=== PATIENT | female | born 1985 | race American Indian/Alaskan Native ===

== ENCOUNTER 2017-03-31 04:10 | Emergency (ER) | payer OTHER ==
[2017-03-31 04:10] VITALS: BMI 25.3
[2017-03-31 04:23] VITALS: BP 150/93
[2017-03-31] MEDS ORDERED: Sodium Chloride 0.9% 1,000 ML IV ONE (04:26)
--- NOTE | 2017-03-31 04:28 | C.PDOC ---
History Of Present Illness 31 year old female, with history of chronic episodes of vomiting, presents to the ED for evaluation of nausea and vomiting which began around 3 days ago. Patient denies fever, chills, or changes in bowel movements at this time. Chief Complaint (Nursing): GI Problem History Per: Patient History/Exam Limitations: no limitations Onset/Duration Of Symptoms: Days (3) Current Symptoms Are (Timing): Still Present Associated Symptoms: Nausea, Vomiting. denies: Fever, Chills, Diarrhea, Constipation Additional History Per: Patient Abnormal Vaginal Bleeding: No Past Medical History Reviewed: Historical Data, Nursing Documentation, Vital Signs Vital Signs: Last Vital Signs Temp 97.6 F 03/31/17 04:19 Pulse 92 H 03/31/17 04:19 Resp 18 03/31/17 04:19 BP 150/93 H 03/31/17 04:19 Pulse Ox 97 03/31/17 05:38 - Medical History PMH: Anxiety, Depression, Diabetes, Gastritis, HTN, Osteoporosis (pt unsure of this hx), Sickle Cell Disease ("JUST FOUND OUT A MONTH AGO"), Chronic Pain Denies: Crohn's Disease, Diverticulitis, Gall Bladder Disease, HIV, Pancreatitis, Chronic Kidney Disease Surgical History: Endoscopy - [facility] Procedures ESOPHAGOGASTRODUODENOSCOPY [EGD] W/CLOSED BIOPSY (11/16/13) INJECT/INFUSE ELECTROLYT (02/25/15) INJECT/INFUSE NEC (02/25/15) Family History: States: Unknown Family Hx, Diabetes - Social History Hx Tobacco Use: Yes Hx Alcohol Use: No Hx Substance Use: Yes - Immunization History Hx Tetanus Toxoid Vaccination: No Hx Influenza Vaccination: Yes Hx Pneumococcal Vaccination: No Review Of Systems Constitutional: Negative for: Fever, Chills Gastrointestinal: Positive for: Nausea, Vomiting. Negative for: Diarrhea, Constipation Physical Exam - Physical Exam Appears: Non-toxic, No Acute Distress Skin: Normal Color, Warm, Dry Head: Atraumatic, Normacephalic Eye(s): bilateral: Normal Inspection Oral Mucosa: Dry Neck: Supple Chest: Symmetrical, No Deformity, No Tenderness Cardiovascular: Rhythm Regular, No Murmur Respiratory: Normal Breath Sounds, No Rales, No Rhonchi, No Wheezing Gastrointestinal/Abdominal: Soft, No Tenderness, No Guarding, No Rebound Extremity: Normal ROM, Capillary Refill (less than 2 seconds ) Neurological/Psych: Oriented x3, Normal Speech, Normal Cognition Gait: Steady ED Course And Treatment - Laboratory Results Result Diagrams: 03/31/17 04:38 03/31/17 04:38 O2 Sat by Pulse Oximetry: 97 (on RA) Pulse Ox Interpretation: Normal Progress Note: Bloodwork and UA ordered and reviewed. Benadryl IVP, Reglan IVP and IV Fluids ordered and reviewed. Disposition Counseled Patient/Family Regarding: Diagnosis - Disposition Referrals: Non [facility] Provider, [Primary Care Provider] - Disposition: HOME/ ROUTINE Disposition Time: 05:37 Condition: STABLE Prescriptions: Metoclopramide [Reglan] 1 tab PO TID PRN #25 tab PRN Reason: Nausea/Vomiting Instructions: Acute Nausea and Vomiting (ED) Forms: [facility] (Guamanian) - Clinical Impression Clinical Impression: Vomiting, Gastroparesis diabeticorum - Scribe Statement The provider has reviewed the documentation as recorded by the Scribe (Vanessa Casas) Provider Attestation: All medical record entries made by the Scribe were at my direction and personally dictated by me. I have reviewed the chart and agree that the record accurately reflects my personal performance of the history, physical exam, medical decision making, and the department course for this patient. I have also personally directed, reviewed, and agree with the discharge instructions and disposition.
[2017-03-31 04:46] LABS: BASO # 0.1 K/uL (0.0-0.2); BASO % 0.9 % (0.0-2.0); EOS % 0.4 % (0.0-4.0); HEMATOCRIT 39.7 % (34.0-47.0); LYMPH # 1.7 K/uL (1.0-4.3); LYMPH % 18.3 % (20.0-40.0); MEAN CORPUSCULAR HEMOGLOBIN 28.1 pg (27.0-31.0); MEAN CORPUSCULAR HGB CONC 33.9 g/dL (33.0-37.0); MEAN PLATELET VOLUME 7.7 fL (7.2-11.7); MONO # 0.5 K/uL (0.0-0.8); MONO % 5.4 % (0.0-10.0); RED CELL DISTRIBUTION WIDTH 13.3 % (11.5-14.5); WHITE BLOOD COUNT 9.1 K/uL (4.8-10.8)
[2017-03-31 05:13] LABS: CHLORIDE 100 mmol/L (98-107)
[2017-03-31] MEDS ORDERED: DiphenhydrAMINE 50 mg/ml Inj IVP STA (05:13)
[2017-03-31 05:14] LABS: POTASSIUM 3.7 mmol/L (3.6-5.2); SODIUM 138 mmol/L (132-148)
[2017-03-31] MEDS ORDERED: DiphenhydrAMINE 50 mg/ml Inj ONE (05:18)
[2017-03-31 05:29] LABS: ALB/GLOB RATIO 1.1 (1.0-2.1); ALKALINE PHOSPHATASE 70 U/L (38-126); ALT/SGPT 60 U/L (9-52); AST/SGOT 32 U/L (14-36); BILIRUBIN,TOTAL 0.8 mg/dL (0.2-1.3); BLOOD UREA NITROGEN 15 mg/dL (7-17); CALCIUM 9.8 mg/dl (8.6-10.4); CARBON DIOXIDE 23 mmol/L (22-30); GFR AFRICAN-AMERICAN > 60; GLUCOSE,RANDOM 203 mg/dL (65-105); TOTAL PROTEIN 9.3 g/dL (6.3-8.3)
[2017-03-31 05:37] LABS: RBC URINE 3 /hpf (0-3); URINE BILIRUBIN NEGATIVE (NEGATIVE); URINE BLOOD NEGATIVE (NEGATIVE); URINE COLOR Yellow (YELLOW); URINE GLUCOSE (UA) NORMAL (Normal); URINE KETONE NEGATIVE (NEGATIVE); URINE LEUKOCYTE ESTERASE NEG Leu/uL (Negative); URINE PROTEIN 2+ mg/dL (NEGATIVE); URINE UROBILINOGEN NORMAL mg/dL (0.2-1.0); WBC URINE < 1 /hpf (0-5)
[2017-03-31 05:52] VITALS: PULSE 89; RESP 16; TEMP 98; O2SAT 99
== END 2017-03-31 05:52 | disposition home or self-care (01) ==
LOC: C.ER 04:10 → SUPCPDRO 04:10 → C.ER 05:52
DX: E11.43 Type 2 diabetes mellitus with diabetic autonomic (poly)neuropathy (principal); K31.84 Gastroparesis; R11.10 Vomiting, unspecified; I10 Essential (primary) hypertension; M81.0 Age-related osteoporosis without current pathological fracture; Z87.891 Personal history of nicotine dependence
CPT/HCPCS: 80053; 81001; 82948; 83690; 84702; 84703; 85025; 96374; 96375; 99284; J1200; J2765; J7040

== ENCOUNTER 2017-05-14 15:08 | Emergency (ER) | payer OTHER ==
[2017-05-14 15:11] VITALS: BMI 25.3
[2017-05-14 15:18] VITALS: TEMP 98.8
[2017-05-14] MEDS ORDERED: Sodium Chloride 0.9% 1,000 ML IV ONE (15:24)
--- NOTE | 2017-05-14 15:24 | C.PDOC ---
History Of Present Illness 31 year old female with Hx of gastroparesis presents to the ED c/o vomit and abdominal pain for the past 2 weeks. Patient states she went to her PMD who prescribed her Zofran, she presents today because according to her the pain worsened and she "can't take it". Patient denies fever, diarrhea, bloody stools , hematuria, back pain, dizziness. Time Seen by Provider: 05/14/17 15:16 Chief Complaint (Nursing): GI Problem History Per: Patient History/Exam Limitations: no limitations Onset/Duration Of Symptoms: Days Current Symptoms Are (Timing): Still Present Location Of Pain/Discomfort: Diffuse Radiation Of Pain To:: None Quality Of Discomfort: "Pain" Associated Symptoms: Vomiting, Loss Of Appetite. denies: Fever, Diarrhea Recent travel outside of the [place]: No Additional History Per: Patient Abnormal Vaginal Bleeding: No Past Medical History Reviewed: Historical Data, Nursing Documentation, Vital Signs Vital Signs: Last Vital Signs Temp 98.8 F 05/14/17 15:14 Pulse 84 05/14/17 15:14 Resp 22 05/14/17 15:14 BP 174/100 H 05/14/17 15:14 Pulse Ox 98 05/14/17 15:48 - Medical History PMH: Anxiety, Depression, Diabetes, Gastritis, HTN, Osteoporosis (pt unsure of this hx), Sickle Cell Disease ("JUST FOUND OUT A MONTH AGO"), Chronic Pain Denies: Crohn's Disease, Diverticulitis, Gall Bladder Disease, HIV, Pancreatitis, Chronic Kidney Disease Surgical History: Endoscopy - [facility] Procedures ESOPHAGOGASTRODUODENOSCOPY [EGD] W/CLOSED BIOPSY (11/16/13) INJECT/INFUSE ELECTROLYT (02/25/15) INJECT/INFUSE NEC (02/25/15) Family History: States: Unknown Family Hx, Diabetes - Social History Hx Tobacco Use: Yes Hx Alcohol Use: No Hx Substance Use: Yes - Immunization History Hx Tetanus Toxoid Vaccination: No Hx Influenza Vaccination: No Hx Pneumococcal Vaccination: No Review Of Systems Constitutional: Negative for: Fever, Chills Cardiovascular: Negative for: Chest Pain Respiratory: Negative for: Cough, Shortness of Breath Gastrointestinal: Positive for: Vomiting, Abdominal Pain. Negative for: Nausea , Diarrhea Genitourinary: Negative for: Dysuria, Hematuria Skin: Negative for: Rash Neurological: Negative for: Weakness, Numbness Physical Exam - Physical Exam Appears: Non-toxic, In Acute Distress (secondary to pain) Skin: Normal Color, Warm, Dry Head: Atraumatic, Normacephalic Oral Mucosa: Moist, No Drooling Throat: Normal, No Erythema, No Exudate Neck: Normal ROM, Supple Chest: Symmetrical Cardiovascular: Rhythm Regular, No Murmur Respiratory: Normal Breath Sounds, No Rales, No Rhonchi, No Wheezing Gastrointestinal/Abdominal: Soft, Tenderness (Mild diffuse), No Organomegaly, No Mass, No Distention, No Guarding, No Rebound, No Hernia Back: No CVA Tenderness Extremity: Normal ROM, No Pedal Edema, No Calf Tenderness, No Deformity, No Swelling Neurological/Psych: Oriented x3, Normal Speech, Normal Cognition Gait: Steady ED Course And Treatment - Laboratory Results Result Diagrams: 05/14/17 15:46 05/14/17 15:46 O2 Sat by Pulse Oximetry: 98 (On RA) Pulse Ox Interpretation: Normal Progress Note: Plan: -Blood work, UA ordered. -Abdomen X -Ray ordered. -IV fluids given. -Pepecid 20 mg IVP given. -Phenergan 25 mg IVP given. -Zofran 4 mg IVP given Disposition Doctor Will See Patient In The: Office Counseled Patient/Family Regarding: Studies Performed, Diagnosis, Need For Followup, Rx Given - Disposition Disposition: HOME/ ROUTINE Disposition Time: 18:15 Condition: FAIR Prescriptions: oxyCODONE/Acetaminophen [Percocet 5/325 mg Tab] 1 ea PO TID PRN #10 tab PRN Reason: Pain, Moderate (4-7) Instructions: Abdominal Pain (ED) Forms: [employer] (Lithuanian) - Clinical Impression Clinical Impression: Gastroparesis, Chronic abdominal pain - Scribe Statement The provider has reviewed the documentation as recorded by the Scribe Gumaro Juan All medical record entries made by the Scribe were at my direction and personally dictated by me. I have reviewed the chart and agree that the record accurately reflects my personal performance of the history, physical exam, medical decision making, and the department course for this patient. I have also personally directed, reviewed, and agree with the discharge instructions and disposition.
[2017-05-14 15:49] LABS: BASO % 0.6 % (0.0-2.0); EOS # 0.1 K/uL (0.0-0.7); EOS % 0.9 % (0.0-4.0); HEMATOCRIT 39.5 % (34.0-47.0); LYMPH # 2.6 K/uL (1.0-4.3); LYMPH % 38.4 % (20.0-40.0); MEAN CELL VOLUME 81.8 fL (81.0-99.0); MEAN PLATELET VOLUME 8.2 fL (7.2-11.7); MONO # 0.4 K/uL (0.0-0.8); MONO % 5.3 % (0.0-10.0); NRBC % 0.1 % (0.0-2.0); RED CELL DISTRIBUTION WIDTH 13.3 % (11.5-14.5); WHITE BLOOD COUNT 6.7 K/uL (4.8-10.8)
[2017-05-14] MEDS ORDERED: Sodium Chloride 0.9% 1,000 ML ONE (15:49)
[2017-05-14 16:08] LABS: ALB/GLOB RATIO 1.2 (1.0-2.1); ALKALINE PHOSPHATASE 54 U/L (38-126); ALT/SGPT 51 U/L (9-52); AST/SGOT 33 U/L (14-36); BILIRUBIN,TOTAL 0.5 mg/dL (0.2-1.3); BLOOD UREA NITROGEN 9 mg/dL (7-17); CALCIUM 8.3 mg/dl (8.6-10.4); CARBON DIOXIDE 26 mmol/L (22-30); CHLORIDE 106 mmol/L (98-107); GFR AFRICAN-AMERICAN > 60; GLUCOSE,RANDOM 138 mg/dL (65-105); POTASSIUM 3.9 mmol/L (3.6-5.2); SODIUM 140 mmol/L (132-148); TOTAL PROTEIN 7.5 g/dL (6.3-8.3)
[2017-05-14 16:12] LABS: RBC URINE 3 /hpf (0-3); URINE BILIRUBIN NEGATIVE (NEGATIVE); URINE BLOOD 1+ (NEGATIVE); URINE COLOR Yellow (YELLOW); URINE GLUCOSE (UA) NORMAL (Normal); URINE KETONE NEGATIVE (NEGATIVE); URINE LEUKOCYTE ESTERASE NEG Leu/uL (Negative); URINE PROTEIN 1+ mg/dL (NEGATIVE); URINE UROBILINOGEN NORMAL mg/dL (0.2-1.0); WBC URINE 1 /hpf (0-5)
[2017-05-14] MEDS ORDERED: Oxycodone/Acetaminophen 5/325 mg Tab PO STA (16:35)
[2017-05-14] MEDS ORDERED: Oxycodone/Acetaminophen 5/325 mg Tab ONE (16:43)
[2017-05-14 17:41] VITALS: PULSE 79; RESP 19
--- NOTE | 2017-05-14 18:23 | RAD ---
HISTORY: abd pain COMPARISON: No prior. FINDINGS: BOWEL: No suspicious bowel gas pattern. No obstruction. No free air. BONES: Normal. OTHER FINDINGS: No abnormal internal calcifications including the pelvis. IMPRESSION: Nonobstructive bowel gas pattern. No free intraperitoneal gas. CT is available for follow-up if clinically warranted.
[2017-05-14 18:31] VITALS: BP 152/98; O2SAT 97
== END 2017-05-14 18:17 | disposition home or self-care (01) ==
LOC: C.ER 15:08
DX: K31.84 Gastroparesis (principal); G89.29 Other chronic pain; R10.9 Unspecified abdominal pain; E11.9 Type 2 diabetes mellitus without complications; I10 Essential (primary) hypertension; Z87.891 Personal history of nicotine dependence
CPT/HCPCS: 74000; 80053; 81001; 83605; 83690; 84703; 85025; 96374; 96375; 96376; 99285; J1885; J2405; J2550; J7040

== ENCOUNTER 2017-06-01 04:51 | Emergency (ER) | payer OTHER ==
[2017-06-01 04:51] VITALS: BMI 25.3
[2017-06-01 05:04] VITALS: RESP 20
[2017-06-01] MEDS ORDERED: Sodium Chloride 0.9% 1,000 ML IV ONE (05:31)
[2017-06-01] MEDS ORDERED: Belladonna-Phenobarbital PO STA (05:31)
[2017-06-01] MEDS ORDERED: Aluminum Hydroxide/Magnesium Hydroxide Susp (30 mL) PO STA (05:31)
[2017-06-01] MEDS ORDERED: Alum-Mag Hydrox-Simethicone Susp (30 mL) ONE (06:17)
[2017-06-01] MEDS ORDERED: Belladonna-Phenobarbital ONE (06:17)
--- NOTE | 2017-06-01 06:18 | C.PDOC ---
History Of Present Illness 31 year old female presents to the ER with a complaint of nausea and vomiting "all day". Denies fever, chills, or abdominal pain. Patient reports she vomited food 4 times. Patient has a Hx of diabetes, HTN, and gastroparesis and is on protonix, metformin, and lisinopril. She reports having an endoscopy done by Dr. Nava yesterday that she also reports was normal. Time Seen by Provider: 06/01/17 05:04 Chief Complaint (Nursing): Abdominal Pain History Per: Patient History/Exam Limitations: no limitations Onset/Duration Of Symptoms: Hrs Current Symptoms Are (Timing): Still Present Pain Scale Rating Of: 2 Radiation Of Pain To:: None Quality Of Discomfort: Unable To Describe Associated Symptoms: Nausea, Vomiting. denies: Fever, Chills Exacerbating Factors: None Alleviating Factors: None Recent travel outside of the [place]: No Abnormal Vaginal Bleeding: No Past Medical History Reviewed: Historical Data, Nursing Documentation, Vital Signs Vital Signs: Last Vital Signs Temp 98 F 06/01/17 07:07 Pulse 81 06/01/17 07:07 Resp 20 06/01/17 07:07 BP 132/89 06/01/17 07:07 Pulse Ox 97 06/01/17 07:07 - Medical History PMH: Anxiety, Depression, Diabetes, Gastritis, HTN, Osteoporosis (pt unsure of this hx), Sickle Cell Disease ("JUST FOUND OUT A MONTH AGO"), Chronic Pain Other PMH: gastroparesis Surgical History: No Surg Hx - [facility] Procedures ESOPHAGOGASTRODUODENOSCOPY [EGD] W/CLOSED BIOPSY (11/16/13) INJECT/INFUSE ELECTROLYT (02/25/15) INJECT/INFUSE NEC (02/25/15) Family History: States: Unknown Family Hx, Diabetes - Social History Hx Tobacco Use: Yes Hx Alcohol Use: No Hx Substance Use: No - Immunization History Hx Tetanus Toxoid Vaccination: Yes Hx Influenza Vaccination: Yes Hx Pneumococcal Vaccination: Yes Review Of Systems Constitutional: Negative for: Fever, Chills Cardiovascular: Negative for: Chest Pain, Palpitations Respiratory: Negative for: Cough, Shortness of Breath, SOB with Excertion, Pleuritic Pain, Sputum Gastrointestinal: Positive for: Nausea, Vomiting. Negative for: Abdominal Pain , Diarrhea, Constipation, Melena, Hematochezia, Hematemesis, Rectal Pain Genitourinary: Negative for: Dysuria, Hematuria Musculoskeletal: Negative for: Neck Pain Skin: Negative for: Rash Neurological: Negative for: Weakness, Confusion Physical Exam - Physical Exam Appears: Non-toxic, No Acute Distress Skin: Normal Color, Warm, Dry Head: Atraumatic, Normacephalic Eye(s): bilateral: Normal Inspection Oral Mucosa: Moist Teeth: Normal Dentition Gingiva: Normal Appearing Throat: Normal Neck: Normal Chest: Symmetrical, No Tenderness Cardiovascular: Rhythm Regular Respiratory: Normal Breath Sounds, No Rales, No Rhonchi, No Wheezing Gastrointestinal/Abdominal: Normal Exam, Bowel Sounds, Soft, No Tenderness, No Organomegaly, No Mass, No Distention, No Guarding, No Rebound, No Hernia, No Ascites Back: Normal Inspection Extremity: Normal ROM Extremity: Bilateral: Atraumatic Neurological/Psych: Oriented x3, Normal Speech ED Course And Treatment - Laboratory Results Result Diagrams: 06/01/17 06:11 06/01/17 06:11 O2 Sat by Pulse Oximetry: 98 (Room air) Pulse Ox Interpretation: Normal Medical Decision Making Medical Decision Making: Plan: * CMP * Lipase * CBC * Obstructive series * Upreg * UA * Maalox * * Pepcid * IV fluids * Toradol * Zofran labs reviewed and unremarkable. Pt given GI cocktail and pepcid and zofran, and toradol and IVF. On reevaluation, patient reports improvement of pain and requests to go home, no indication for plain films at this time. Disposition - Disposition Referrals: [facility] [Outside] [facility] [Outside] [facility] [Outside] Disposition: HOME/ ROUTINE Disposition Time: 06:30 Condition: GOOD Additional Instructions: return as needed for severe worsening pain Instructions: Abdominal Pain (ED) Forms: General Discharge Instructions, [facility] (Malian) - Clinical Impression Clinical Impression: Abdominal pain, Gastroparesis, Gastroparesis due to DM, Chronic abdominal pain - Scribe Statement The provider has reviewed the documentation as recorded by the Scribe Sha Zambrano All medical record entries made by the Scribe were at my direction and personally dictated by me. I have reviewed the chart and agree that the record accurately reflects my personal performance of the history, physical exam, medical decision making, and the department course for this patient. I have also personally directed, reviewed, and agree with the discharge instructions and disposition.
[2017-06-01 06:21] LABS: BASO # 0.1 K/uL (0.0-0.2); EOS % 0.1 % (0.0-4.0); LYMPH # 1.2 K/uL (1.0-4.3); LYMPH % 17.1 % (20.0-40.0); MEAN CORPUSCULAR HEMOGLOBIN 27.6 pg (27.0-31.0); MEAN CORPUSCULAR HGB CONC 33.6 g/dL (33.0-37.0); MONO # 0.2 K/uL (0.0-0.8); MONO % 3.2 % (0.0-10.0); RED CELL DISTRIBUTION WIDTH 13.5 % (11.5-14.5); WHITE BLOOD COUNT 7.1 K/uL (4.8-10.8)
[2017-06-01 06:35] LABS: ALB/GLOB RATIO 0.9 (1.0-2.1); ALKALINE PHOSPHATASE 47 U/L (38-126); ALT/SGPT 61 U/L (9-52); AST/SGOT 38 U/L (14-36); BILIRUBIN,TOTAL 1.1 mg/dL (0.2-1.3); BLOOD UREA NITROGEN 15 mg/dL (7-17); CALCIUM 8.9 mg/dl (8.6-10.4); CARBON DIOXIDE 18 mmol/L (22-30); CHLORIDE 100 mmol/L (98-107); GFR AFRICAN-AMERICAN > 60; GLUCOSE,RANDOM 241 mg/dL (65-105); POTASSIUM 4.5 mmol/L (3.6-5.2); SODIUM 134 mmol/L (132-148); TOTAL PROTEIN 9.5 g/dL (6.3-8.3)
[2017-06-01 06:42] LABS: GRANULAR CAST 1 /lpf (0-1); RBC URINE 12 /hpf (0-3); URINE BILIRUBIN NEGATIVE (NEGATIVE); URINE BLOOD 1+ (NEGATIVE); URINE COLOR Yellow (YELLOW); URINE GLUCOSE (UA) 1+ mg/dL (Normal); URINE KETONE TRACE mg/dL (NEGATIVE); URINE LEUKOCYTE ESTERASE NEG Leu/uL (Negative); URINE PROTEIN 2+ mg/dL (NEGATIVE); URINE UROBILINOGEN NORMAL mg/dL (0.2-1.0); WBC URINE 1 /hpf (0-5)
[2017-06-01 07:09] VITALS: BP 132/89; PULSE 81; TEMP 98
[2017-06-02 23:39] VITALS: O2SAT 98
== END 2017-06-01 07:07 | disposition home or self-care (01) ==
LOC: C.ER 04:51
DX: G89.29 Other chronic pain (principal); E11.43 Type 2 diabetes mellitus with diabetic autonomic (poly)neuropathy; K31.84 Gastroparesis; Z79.84 Long term (current) use of oral hypoglycemic drugs; I10 Essential (primary) hypertension; Z87.891 Personal history of nicotine dependence
CPT/HCPCS: 80053; 81001; 83690; 84703; 85025; 96374; 96375; 99284; J1885; J2405; J7040

== ENCOUNTER 2017-09-23 19:25 | Emergency (ER) | payer OTHER ==
[2017-09-23 19:25] VITALS: BMI 23.8
[2017-09-23 19:34] VITALS: RESP 18
[2017-09-23] MEDS ORDERED: Belladonna-Phenobarbital PO STA (20:59)
[2017-09-23] MEDS ORDERED: Sodium Chloride 0.9% 1,000 ML IV ONE (20:59)
[2017-09-23] MEDS ORDERED: Aluminum Hydroxide/Magnesium Hydroxide Susp (30 mL) PO STA (20:59)
[2017-09-23 21:08] LABS: BASO # 0.1 K/uL (0.0-0.2); BASO % 0.8 % (0.0-2.0); EOS % 0.2 % (0.0-4.0); HEMOGLOBIN 12.8 g/dL (11.0-16.0); LYMPH # 1.6 K/uL (1.0-4.3); LYMPH % 19.2 % (20.0-40.0); MEAN CELL VOLUME 82.3 fL (81.0-99.0); MEAN CORPUSCULAR HEMOGLOBIN 27.6 pg (27.0-31.0); MEAN CORPUSCULAR HGB CONC 33.5 g/dL (33.0-37.0); MONO # 0.3 K/uL (0.0-0.8); MONO % 3.8 % (0.0-10.0); NEUT # 6.2 K/uL (1.8-7.0); RBC 4.64 Mil/uL (3.80-5.20); RED CELL DISTRIBUTION WIDTH 13.6 % (11.5-14.5); WHITE BLOOD COUNT 8.2 K/uL (4.8-10.8)
[2017-09-23] MEDS ORDERED: Sodium Chloride 0.9% 1,000 ML ONE (21:13)
[2017-09-23] MEDS ORDERED: Aluminum Hydroxide/Magnesium Hydroxide Susp (30 mL) ONE (21:13)
[2017-09-23] MEDS ORDERED: Belladonna-Phenobarbital ONE (21:13)
[2017-09-23 21:33] LABS: ALB/GLOB RATIO 1.2 (1.0-2.1); ALBUMIN 4.6 g/dL (3.5-5.0); ALT/SGPT 21 U/L (9-52); AST/SGOT 42 U/L (14-36); BLOOD UREA NITROGEN 11 mg/dL (7-17); CALCIUM 9.8 mg/dl (8.6-10.4); GFR AFRICAN-AMERICAN > 60; GFR NON-AFRICAN AMERICAN > 60; LIPASE 174 U/L (23-300)
--- NOTE | 2017-09-23 21:41 | C.PDOC ---
History Of Present Illness 31-year-old female, presents to the emergency department with complaints of migraine. Patient has a Hx of migraines and states this feels similar, she notes associated photophobia, and nausea with episodes of non-bloody/non- bilious vomiting x2 days. Patient has a Hx of multiple visits to the ED for same complaint. Not the worst headache of her life. No numbness/weakness, dizziness, chest pain, shortness of breath, facial droop, sensory or vascular deficit. Chief Complaint (Nursing): Abdominal Pain History Per: Patient History/Exam Limitations: no limitations Past Medical History Reviewed: Historical Data, Nursing Documentation, Vital Signs Vital Signs: Last Vital Signs Temp 98.4 F 09/23/17 22:25 Pulse 82 09/23/17 22:25 Resp 18 09/23/17 22:25 BP 120/77 09/23/17 22:25 Pulse Ox 100 09/23/17 22:25 - Medical History PMH: Anxiety, Depression, Diabetes, Gastritis, HTN, Osteoporosis (pt unsure of this hx), Sickle Cell Disease, Chronic Pain Surgical History: Endoscopy - [facility] Procedures ESOPHAGOGASTRODUODENOSCOPY [EGD] W/CLOSED BIOPSY (11/16/13) INJECT/INFUSE ELECTROLYT (02/25/15) INJECT/INFUSE NEC (02/25/15) Family History: States: No Known Family Hx, Diabetes - Social History Hx Tobacco Use: Yes Hx Alcohol Use: No Hx Substance Use: Yes - Immunization History Hx Tetanus Toxoid Vaccination: Yes Hx Influenza Vaccination: Yes Hx Pneumococcal Vaccination: No Review Of Systems Constitutional: Negative for: Fever, Chills Eyes: Negative for: Vision Change Gastrointestinal: Negative for: Vomiting Musculoskeletal: Negative for: Neck Pain, Back Pain Neurological: Positive for: Headache. Negative for: Weakness, Numbness, Change in Speech, Confusion, Seizures, Dizziness Physical Exam - Physical Exam Appears: Non-toxic, No Acute Distress Skin: Normal Color, Warm, Dry, No Rash Head: Normacephalic Eye(s): bilateral: Normal Inspection, PERRL, EOMI Nose: Normal Oral Mucosa: Moist Lips: Normal Appearing Neck: Normal ROM Chest: Symmetrical Cardiovascular: Rhythm Regular, No Murmur Respiratory: Normal Breath Sounds, No Accessory Muscle Use Extremity: Normal ROM, No Deformity, No Swelling Neurological/Psych: Oriented x3, Normal Speech, Other (anxious appearing. ) ED Course And Treatment - Laboratory Results Result Diagrams: 09/23/17 21:04 09/23/17 21:04 O2 Sat by Pulse Oximetry: 97 (RA) Pulse Ox Interpretation: Normal Disposition - Disposition Referrals: Amir[facility], [Non-Staff] - Disposition: HOME/ ROUTINE Disposition Time: 22:00 Condition: IMPROVED Additional Instructions: Thank you for letting us take care of you today. The emergency medical care you received today was directed at your acute symptoms. If you were prescribed any medication, please fill it and take as directed. It may take several days for your symptoms to resolve. Return to the Emergency Department if your symptoms worsen, do not improve, or if you have any other problems. Please contact your doctor or call one of the physicians/clinics you have been referred to that are listed on the Patient Visit Information form that is included in your discharge packet. Bring any paperwork you were given at discharge with you along with any medications you are taking to your follow up visit. Our treatment cannot replace ongoing medical care by a primary care provider (PCP) outside of the emergency department. Thank you for allowing the [facility] team to be part of your care today. Follow up with your primary doctor in 2-3 days for re-evaluation and further management. Instructions: Gastritis, Migraine Headache (DC) Forms: [employer] (Yoruba) - Clinical Impression Clinical Impression: Migraine, Gastritis - Scribe Statement The provider has reviewed the documentation as recorded by the Scribe (Roxie Chaparro) All medical record entries made by the Scribe were at my direction and personally dictated by me. I have reviewed the chart and agree that the record accurately reflects my personal performance of the history, physical exam, medical decision making, and the department course for this patient. I have also personally directed, reviewed, and agree with the discharge instructions and disposition.
[2017-09-23 22:25] VITALS: BP 120/77; PULSE 82; TEMP 98.4
[2017-09-23] MEDS ORDERED: Acetaminophen-Codeine 300/30 mg Tab PO STA (22:59)
[2017-09-23] MEDS ORDERED: Acetaminophen-Codeine 300/30 mg Tab PO ONE (23:07)
[2017-09-24 00:40] VITALS: O2SAT 97
== END 2017-09-23 23:30 | disposition home or self-care (01) ==
LOC: C.ER 19:25
DX: G43.909 Migraine, unspecified, not intractable, without status migrainosus (principal); K29.70 Gastritis, unspecified, without bleeding
CPT/HCPCS: 80053; 83690; 84702; 85025; 96361; 96374; 96375; 99285; J1885; J2765; J7040

== ENCOUNTER 2017-10-17 18:01 | Emergency (ER) | payer OTHER ==
[2017-10-17 18:02] VITALS: BMI 23.8
[2017-10-17 18:51] VITALS: O2SAT 98
--- NOTE | 2017-10-17 20:15 | C.PDOC ---
History Of Present Illness 31 y/o female with a history of chronic abdominal pain, sickle trait anemia, DM , and substance abuse presents to the ED for exacerbating abdominal pain. Patient is well known to [facility] facilities and has been arrested in the past for provider confrontations. She denies any hematuria, nausea, vomiting, fever, and diarrhea. Patient has no other complaints. PMD: none provided Chief Complaint (Nursing): Abdominal Pain History Per: Patient History/Exam Limitations: no limitations Onset/Duration Of Symptoms: Hrs Current Symptoms Are (Timing): Still Present Quality Of Discomfort: "Pain" Associated Symptoms: denies: Fever, Nausea, Vomiting, Diarrhea, Urinary Symptoms Recent travel outside of the [place]: No Past Medical History Reviewed: Historical Data, Nursing Documentation, Vital Signs Vital Signs: Last Vital Signs Temp 98.2 F 10/17/17 23:11 Pulse 82 10/17/17 23:11 Resp 18 10/17/17 23:11 BP 116/72 10/17/17 23:11 Pulse Ox 98 10/17/17 23:11 - Medical History PMH: Anxiety, Depression, Diabetes, Gastritis, HTN, Osteoporosis (pt unsure of this hx), Sickle Cell Disease, Chronic Pain Denies: Crohn's Disease, Diverticulitis, Gall Bladder Disease, HIV, Pancreatitis, Chronic Kidney Disease Surgical History: Endoscopy - [facility] Procedures ESOPHAGOGASTRODUODENOSCOPY [EGD] W/CLOSED BIOPSY (11/16/13) INJECT/INFUSE ELECTROLYT (02/25/15) INJECT/INFUSE NEC (02/25/15) Family History: States: Unknown Family Hx, Diabetes - Social History Hx Tobacco Use: Yes Hx Alcohol Use: No Hx Substance Use: Yes (WEED) - Immunization History Hx Tetanus Toxoid Vaccination: Yes Hx Influenza Vaccination: Yes Hx Pneumococcal Vaccination: No Review Of Systems Except As Marked, All Systems Reviewed And Found Negative. Constitutional: Negative for: Fever Gastrointestinal: Positive for: Abdominal Pain. Negative for: Nausea, Vomiting , Diarrhea Genitourinary: Negative for: Hematuria Physical Exam - Physical Exam Appears: Well, No Acute Distress, Other (when approached at bed side patient was under the influence of drugs, cooperative of questions) Skin: Normal Color, Warm, Dry Head: Atraumatic, Normacephalic Eye(s): bilateral: Normal Inspection, PERRL, EOMI Nose: Normal Throat: Normal Neck: Normal Cardiovascular: Rhythm Regular, No Murmur Respiratory: Normal Breath Sounds, No Decreased Breath Sounds Gastrointestinal/Abdominal: Bowel Sounds (normal), Soft, No Mass, Guarding ( mild guarding at epigastric area), No Rebound Back: Normal Inspection, No CVA Tenderness, No Vertebral Tenderness Extremity: Normal ROM, No Pedal Edema Neurological/Psych: Oriented x3 ED Course And Treatment - Laboratory Results Result Diagrams: 10/17/17 21:12 10/17/17 21:12 O2 Sat by Pulse Oximetry: 98 (RA) Pulse Ox Interpretation: Normal Medical Decision Making Medical Decision Making: Time: 18:47 Impression: Chronic abdominal pain Initial Plan: * CBC * Toradol 30 mg IVP * Compazine 5 mg IVP * Ultram 50 mg PO * Uranalysis Patient being admitted for anemia. Scribe Attestation: Documented by Tushar Stewart acting as a scribe Nas Kilgore MD. Scribe Attestation: All medical record entries made by the Scribe were at my direction and personally dictated by me. I have reviewed the chart and agree that the record accurately reflects my personal performance of the history, physical exam, medical decision making, and the department course for this patient. I have also personally directed, reviewed, and agree with the discharge instructions and disposition. Disposition - Disposition Referrals: [facility] [Outside] Disposition: HOME/ ROUTINE Disposition Time: 08:49 Condition: FAIR Instructions: Acute Abdomen (Belly Pain) Forms: [employer] (Macedonian) Print Language: OCCITAN - Clinical Impression Clinical Impression: Abdominal pain, chronic, generalized
[2017-10-17 21:19] LABS: BASO # 0.1 K/uL (0.0-0.2); BASO % 0.8 % (0.0-2.0); EOS % 0.1 % (0.0-4.0); LYMPH % 9.4 % (20.0-40.0); MEAN CORPUSCULAR HEMOGLOBIN 28.1 pg (27.0-31.0); MEAN CORPUSCULAR HGB CONC 34.3 g/dL (33.0-37.0); MEAN PLATELET VOLUME 8.8 fL (7.2-11.7); MONO # 0.2 K/uL (0.0-0.8); MONO % 2.3 % (0.0-10.0); NEUT # 9.2 K/uL (1.8-7.0); NEUT % 87.4 % (50.0-75.0); PLATELET COUNT 256 K/uL (130-400); RBC 4.61 Mil/uL (3.80-5.20); RED CELL DISTRIBUTION WIDTH 12.9 % (11.5-14.5); WHITE BLOOD COUNT 10.5 K/uL (4.8-10.8)
[2017-10-17 21:37] LABS: ALB/GLOB RATIO 1.2 (1.0-2.1); ALBUMIN 4.9 g/dL (3.5-5.0); ALT/SGPT 31 U/L (9-52); AST/SGOT 34 U/L (14-36); BLOOD UREA NITROGEN 12 mg/dL (7-17); CALCIUM 9.1 mg/dl (8.6-10.4); GFR AFRICAN-AMERICAN > 60; GFR NON-AFRICAN AMERICAN > 60; LIPASE 248 U/L (23-300)
[2017-10-17 21:42] LABS: LYMPHOCYTE 10 % (20-40); MONOCYTE 3 % (0-10); NEUTROPHIL 87 % (50-75); TOTAL CELLS COUNTED 100
[2017-10-17 21:43] LABS: PLATELET ESTIMATE NORMAL (NORMAL)
[2017-10-17 21:45] VITALS: RESP 18
[2017-10-17 22:45] LABS: SQUAMOUS EPITHIAL 1 /hpf (0-5); URINE BILIRUBIN NEGATIVE (NEGATIVE); URINE BLOOD 1+ (NEGATIVE); URINE CLARITY Hazy (Clear); URINE COLOR Yellow (YELLOW); URINE GLUCOSE (UA) NORMAL (Normal); URINE LEUKOCYTE ESTERASE NEG Leu/uL (Negative); URINE PROTEIN 1+ mg/dL (NEGATIVE); URINE UROBILINOGEN NORMAL mg/dL (0.2-1.0)
[2017-10-17 22:55] LABS: BARBITURATES, UR NEGATIVE (NEGATIVE); BENZODIAZEPINES, UR NEGATIVE (NEGATIVE); OPIATES, UR NEGATIVE (NEGATIVE); PHENCYCLIDINE, UR NEGATIVE (NEGATIVE)
[2017-10-17 23:00] LABS: HCG,QUALITATIVE URINE NEGATIVE (NEGATIVE)
[2017-10-17 23:11] VITALS: BP 116/72; PULSE 82; TEMP 98.2
== END 2017-10-17 23:11 | disposition home or self-care (01) ==
LOC: C.ER 18:01
DX: G89.29 Other chronic pain (principal); R10.84 Generalized abdominal pain; E11.9 Type 2 diabetes mellitus without complications; I10 Essential (primary) hypertension; Z72.0 Tobacco use
CPT/HCPCS: 80053; 80324; 80345; 80346; 80349; 80353; 80358; 80361; 81001; 82948; 83690; 83992; 84703; 85025; 96374; 96375; 99285; J0780; J1885; J2405

== ENCOUNTER 2018-01-07 15:16 | Emergency (ER) | payer OTHER ==
[2018-01-07 15:17] VITALS: BMI 23.8
[2018-01-07 15:27] VITALS: BP 168/98; PULSE 64; RESP 18; TEMP 97.7; O2SAT 100
[2018-01-07] MEDS ORDERED: Alum-Mag Hydrox-Simethicone Susp (30 mL) PO STA (15:57)
[2018-01-07] MEDS ORDERED: Aluminum Hydroxide/Magnesium Hydroxide Susp (30 mL) ONE (16:12)
[2018-01-07 16:23] LABS: SQUAMOUS EPITHIAL 129 /hpf (0-5); URINE BACTERIA RARE (<OCC); URINE BILIRUBIN NEGATIVE (NEGATIVE); URINE BLOOD 1+ (NEGATIVE); URINE CLARITY Turbid (Clear); URINE COLOR Amber (YELLOW); URINE GLUCOSE (UA) 1+ mg/dL (Normal); URINE LEUKOCYTE ESTERASE TRACE Leu/uL (Negative); URINE PROTEIN 2+ mg/dL (NEGATIVE); URINE UROBILINOGEN NORMAL mg/dL (0.2-1.0)
--- NOTE | 2018-01-07 16:42 | C.PDOC ---
History Of Present Illness 32 y/o female presents to ED c/o cramping epigastric abdominal pain, nausea, and vomiting for the last 3 days. Pt had multiple prior visits for similar symptoms. Denies fever, chills, urinary symptoms, or any other complaints. Time Seen by Provider: 01/07/18 15:56 Chief Complaint (Nursing): Abdominal Pain History Per: Patient History/Exam Limitations: no limitations Past Medical History Reviewed: Historical Data, Nursing Documentation, Vital Signs Vital Signs: Last Vital Signs Temp 97.7 F 01/07/18 15:26 Pulse 64 01/07/18 15:26 Resp 18 01/07/18 15:26 BP 168/98 H 01/07/18 15:26 Pulse Ox 100 01/07/18 16:42 - Medical History PMH: Anxiety, Depression, Diabetes, Gastritis, HTN, Osteoporosis (pt unsure of this hx), Sickle Cell Disease, Chronic Pain Denies: Crohn's Disease, Diverticulitis, Gall Bladder Disease, HIV, Pancreatitis, Chronic Kidney Disease Surgical History: Endoscopy - [facility] Procedures ESOPHAGOGASTRODUODENOSCOPY [EGD] W/CLOSED BIOPSY (11/16/13) INJECT/INFUSE ELECTROLYT (02/25/15) INJECT/INFUSE NEC (02/25/15) Family History: States: Unknown Family Hx, Diabetes - Social History Hx Tobacco Use: Yes Hx Alcohol Use: No Hx Substance Use: Yes (WEED) - Immunization History Hx Tetanus Toxoid Vaccination: Yes Hx Influenza Vaccination: Yes Hx Pneumococcal Vaccination: No Review Of Systems Except As Marked, All Systems Reviewed And Found Negative. Constitutional: Negative for: Fever, Chills Gastrointestinal: Positive for: Nausea, Vomiting, Abdominal Pain Genitourinary: Negative for: Dysuria, Frequency, Hematuria Musculoskeletal: Negative for: Back Pain Physical Exam - Physical Exam Appears: Non-toxic, No Acute Distress, Other (bizarre affect; occasionally manic ) Skin: Normal Color, Warm, Dry Head: Atraumatic, Normacephalic Eye(s): bilateral: Normal Inspection Oral Mucosa: Moist Neck: Supple Cardiovascular: Rhythm Regular Respiratory: Normal Breath Sounds, No Rales, No Rhonchi, No Wheezing Gastrointestinal/Abdominal: Soft, No Tenderness, No Guarding, No Rebound Back: No CVA Tenderness Extremity: Normal ROM Neurological/Psych: Oriented x3, Normal Speech ED Course And Treatment O2 Sat by Pulse Oximetry: 100 Pulse Ox Interpretation: Normal Medical Decision Making Medical Decision Making: typical reflux NO h/o gastroparesis improved with PO ED tx UA/preg neg. Disposition Doctor Will See Patient In The: Office Counseled Patient/Family Regarding: Studies Performed, Diagnosis - Disposition Referrals: [facility] [Outside] [facility] [Outside] [facility] [Outside] Disposition: HOME/ ROUTINE Disposition Time: 16:41 Condition: GOOD Additional Instructions: continue Maalox 30 cc's (one tablespoon) every 3-4 hours as needed for Reflux symptoms Diet and exercise changes to avoid GERD and constipation drink plenty of water. Follow-up in our outpatient Clinic as needed. Instructions: Chronic Pain (DC), Nausea and Vomiting, Adult Forms: [employer] (Croatian) - Clinical Impression Clinical Impression: Abdominal pain, chronic, generalized - Scribe Statement The provider has reviewed the documentation as recorded by the Scribe KP All medical record entries made by the Scribe were at my direction and personally dictated by me. I have reviewed the chart and agree that the record accurately reflects my personal performance of the history, physical exam, medical decision making, and the department course for this patient. I have also personally directed, reviewed, and agree with the discharge instructions and disposition.
== END 2018-01-07 16:49 | disposition home or self-care (01) ==
LOC: C.ER 15:16
DX: G89.29 Other chronic pain (principal); R10.84 Generalized abdominal pain
CPT/HCPCS: 81001; 96372; 99284; J2765

== ENCOUNTER 2018-01-24 04:19 | Emergency (ER) | payer OTHER ==
[2018-01-24 04:19] VITALS: BMI 23.8
[2018-01-24 04:28] VITALS: RESP 18; TEMP 98.5
[2018-01-24] MEDS ORDERED: Promethazine 12.5 mg/10 ml Syrup PO STA (04:47)
--- NOTE | 2018-01-24 04:52 | C.PDOC ---
History Of Present Illness 32 year old female presents to the ER with a complaint of nausea and vomiting for the past 3 days. Also reports diarrhea. Denies chest pain, SOB, dizziness, or headache, abdominal pain. Time Seen by Provider: 01/24/18 04:36 Chief Complaint (Nursing): GI Problem History Per: Patient History/Exam Limitations: no limitations Onset/Duration Of Symptoms: Days Current Symptoms Are (Timing): Still Present Associated Symptoms: Nausea, Vomiting. denies: Fever, Chills, Chest Pain, Other (SOB, Headache, Dizziness) Exacerbating Factors: None Alleviating Factors: None Recent travel outside of the [place]: No Abnormal Vaginal Bleeding: No Past Medical History Reviewed: Historical Data, Nursing Documentation, Vital Signs Vital Signs: Last Vital Signs Temp 98.5 F 01/24/18 04:26 Pulse 69 01/24/18 04:26 Resp 18 01/24/18 04:26 BP 180/94 H 01/24/18 04:26 Pulse Ox 97 01/24/18 04:56 - Medical History PMH: Anxiety, Depression, Diabetes, Gastritis, HTN, Osteoporosis (pt unsure of this hx), Sickle Cell Disease, Chronic Pain Denies: Crohn's Disease, Diverticulitis, Gall Bladder Disease, HIV, Pancreatitis, Chronic Kidney Disease Surgical History: Endoscopy - [facility] Procedures ESOPHAGOGASTRODUODENOSCOPY [EGD] W/CLOSED BIOPSY (11/16/13) INJECT/INFUSE ELECTROLYT (02/25/15) INJECT/INFUSE NEC (02/25/15) Family History: States: Unknown Family Hx, Diabetes - Social History Hx Tobacco Use: Yes Hx Alcohol Use: No Hx Substance Use: Yes (WEED) - Immunization History Hx Tetanus Toxoid Vaccination: Yes Hx Influenza Vaccination: Yes Hx Pneumococcal Vaccination: No Review Of Systems Constitutional: Negative for: Fever, Chills Cardiovascular: Negative for: Chest Pain Respiratory: Negative for: Shortness of Breath Gastrointestinal: Positive for: Nausea, Vomiting Neurological: Negative for: Headache, Dizziness Physical Exam - Physical Exam Appears: Non-toxic Skin: Normal Color, Warm, Dry Head: Atraumatic, Normacephalic Eye(s): bilateral: Normal Inspection Oral Mucosa: Moist Neck: Normal, Supple Chest: Symmetrical, No Tenderness Cardiovascular: Rhythm Regular Respiratory: Normal Breath Sounds, No Rales, No Rhonchi, No Wheezing Gastrointestinal/Abdominal: Soft, No Tenderness Neurological/Psych: Oriented x3, Normal Speech ED Course And Treatment O2 Sat by Pulse Oximetry: 97 (Room air) Pulse Ox Interpretation: Normal Medical Decision Making Medical Decision Making: Patient with nausea and vomiting for few days. She states her epigastric area and throat hurts after vomiting. She wants phenergan for nausea, as zofan not helping. Urinalysis ordered, results positive for . Patient informed of results, she was not surprised and states she wants an . I gave patient information for the [facility] clinic. She denies pelvic pain or bleeding. Patient is walking around back and forth in the ER asking for juice and ice and miya mary. Patient drinking and tolerating. Patient without fever. Abdomen soft and no guarding or rebound. Advise patient to follow up. Disposition Counseled Patient/Family Regarding: Diagnosis, Need For Followup, Rx Given - Disposition [facility]errals: [facility] [Outside] Disposition: HOME/ ROUTINE Disposition Time: 05:19 Condition: STABLE Additional Instructions: Follow up in the clinic Prescriptions: Ondansetron ODT [Zofran ODT] 1 odt PO BID PRN #6 odt PRN Reason: Nausea/Vomiting Instructions: (ED) Forms: 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 - Scribe Statement The provider has reviewed the documentation as recorded by the Scribguille Zambrano All medical record entries made by the Parthibguille were at my direction and personally dictated by me. I have reviewed the chart and agree that the record accurately reflects my personal performance of the history, physical exam, medical decision making, and the department course for this patient. I have also personally directed, reviewed, and agree with the discharge instructions and disposition.
[2018-01-24 04:53] LABS: HCG,QUALITATIVE URINE POSITIVE (NEGATIVE)
[2018-01-24 04:57] LABS: SQUAMOUS EPITHIAL 3 /hpf (0-5); URINE AMORPHOUS SEDIMENT RARE /ul (<OCC); URINE BACTERIA RARE (<OCC); URINE BILIRUBIN NEGATIVE (NEGATIVE); URINE BLOOD NEGATIVE (NEGATIVE); URINE CLARITY Hazy (Clear); URINE COLOR Yellow (YELLOW); URINE GLUCOSE (UA) NORMAL (Normal); URINE HYALINE CAST 0-2 /lpf (0-2); URINE LEUKOCYTE ESTERASE NEG Leu/uL (Negative); URINE PROTEIN 2+ mg/dL (NEGATIVE); URINE UROBILINOGEN NORMAL mg/dL (0.2-1.0)
[2018-01-24 05:57] VITALS: BP 113/76; PULSE 67
[2018-01-24 20:08] VITALS: O2SAT 97
== END 2018-01-24 05:58 | disposition home or self-care (01) ==
LOC: C.ER 04:19 → SUPCPDRO 04:19 → C.ER 05:58
DX: Z32.01 Encounter for pregnancy test, result positive (principal); I10 Essential (primary) hypertension; E11.9 Type 2 diabetes mellitus without complications

== ENCOUNTER 2018-02-26 15:21 | Emergency (ER) | payer OTHER ==
[2018-02-26 15:21] VITALS: BMI 23.8
--- NOTE | 2018-02-26 15:42 | C.PDOC ---
History Of Present Illness 32 year old female presents to the emergency department with complaints of left lower quadrant pain since Tuesday. Patient states that she is currently 11 weeks (). She denies vaginal bleeding, dysuria, hematuria, diarrhea. She admits to nausea and one episode of vomiting. Patient states that she has had care under Dr. Pinto at [facility]. Time Seen by Provider: 02/26/18 15:35 Chief Complaint (Nursing): Abdominal Pain History Per: Patient History/Exam Limitations: no limitations Onset/Duration Of Symptoms: Days (6) Current Symptoms Are (Timing): Still Present Context: Other () Location Of Pain/Discomfort: LLQ Quality Of Discomfort: "Pain" Associated Symptoms: Nausea, Vomiting. denies: Diarrhea, Urinary Symptoms, Other (vaginal bleeding) Abnormal Vaginal Bleeding: No : 2 Para: 1 Past Medical History Reviewed: Historical Data, Nursing Documentation, Vital Signs Vital Signs: Last Vital Signs Temp 99.3 F 02/26/18 15:27 Pulse 78 02/26/18 15:27 Resp 20 02/26/18 15:27 BP 114/77 02/26/18 15:27 Pulse Ox 97 02/26/18 17:27 - Medical History PMH: Anxiety, Depression, Diabetes, Gastritis, HTN, Osteoporosis (pt unsure of this hx), Sickle Cell Disease, Chronic Pain Denies: Crohn's Disease, Diverticulitis, Gall Bladder Disease, HIV, Pancreatitis, Chronic Kidney Disease Surgical History: Endoscopy - [facility] Procedures ESOPHAGOGASTRODUODENOSCOPY [EGD] W/CLOSED BIOPSY (11/16/13) INJECT/INFUSE ELECTROLYT (02/25/15) INJECT/INFUSE NEC (02/25/15) Family History: States: Unknown Family Hx, Diabetes - Social History Hx Tobacco Use: Yes Hx Alcohol Use: No Hx Substance Use: Yes (WEED) - Immunization History Hx Tetanus Toxoid Vaccination: Yes Hx Influenza Vaccination: Yes Hx Pneumococcal Vaccination: No Review Of Systems Except As Marked, All Systems Reviewed And Found Negative. Gastrointestinal: Positive for: Nausea, Vomiting, Abdominal Pain. Negative for : Diarrhea Genitourinary: Negative for: Dysuria, Hematuria, Vaginal Bleeding Physical Exam - Physical Exam Appears: Non-toxic, In Acute Distress (uncomfortable) Skin: Warm, Dry Head: Atraumatic, Normacephalic Eye(s): bilateral: Normal Inspection Nose: Normal Neck: Normal, Supple Chest: Symmetrical, No Tenderness Cardiovascular: Rhythm Regular, No Murmur Respiratory: Normal Breath Sounds, No Rales, No Rhonchi, No Wheezing Gastrointestinal/Abdominal: Soft, Tenderness (LLQ), No Guarding, No Rebound Back: No CVA Tenderness Extremity: Normal ROM (all extremities) Neurological/Psych: Oriented x3, Normal Speech, Normal Cognition ED Course And Treatment - Laboratory Results Result Diagrams: 02/26/18 16:18 02/26/18 16:18 O2 Sat by Pulse Oximetry: 97 (RA) Pulse Ox Interpretation: Normal - Other Rad XR Obstructive Series X-Ray: Viewed By Me, Read By Radiologist Interpretation: PROCEDURE: OB Pelvic Ultrasound. HISTORY: LLQ, left adnexal pain. LMP: November 2017. COMPARISON: No relevant prior imaging. FINDINGS: UTERUS: Gestational sac: Single intrauterine gestation.Measures 6.1 cm, out of range. Yolk sac: Measures 0.5 cm. pole: [place]-rump length 4.5 cm compatible with estimated gestational age of 11 weeks, 2 days. Heart rate : 148 bpm. age (Ultrasound estimated): 11 weeks, 2 days. [place]- gestational hemorrhage: None. Date of delivery (Ultrasound estimated) : 2018. Uterus measures 11.3 x 9.2 x 9.1 cm. Normal in size and appearance. CERVIX: Measures 3.4 cm. Long and closed. No cervical abnormality seen. RIGHT OVARY: Measures 3.5 x 1.5 x 2.3 cm. No mass lesion. Normal flow. LEFT OVARY: Measures 2.9 x 1.9 x 3.2 cm. No solid mass. Normal flow. FREE FLUID: None. OTHER FINDINGS: None. IMPRESSION: Single live intrauterine gestation with average ultrasound age of 11 weeks, 2 days. heart rate 148 beats per minute. Cervix long and closed. Low lying placenta. Progress Note: Plan: workup Disposition Counseled Patient/Family Regarding: Studies Performed, Diagnosis, Need For Followup, Rx Given - Disposition Referrals: Jasiel Riley MD [Staff Provider] - Disposition: HOME/ ROUTINE Disposition Time: 17:25 Condition: STABLE Additional Instructions: FOLLOW UP WITH YOUR FLATWORK PRESSER WITHIN 1 WEEK USE TYLENOL NEEDED FOR PAIN DRINK PLENTY OF FLUIDS RETURN TO EMERGENCY ROOM IF SYMPTOMS WORSEN SEGUIMIENTO CON TU OB / INSTALLER APPRENTICE DENTRO DE 1 SEMANA USE TYLENOL SEGN SEA NECESARIO PARA DOLOR BEBER MUCHO LQUIDO REGRESE AL ESTELA DE EMERGENCIA SI LOS SNTOMAS EMPEORAN Prescriptions: Acetaminophen [Tylenol 325mg tab] 650 mg PO Q6 PRN #30 tab PRN Reason: pain/fever Instructions: Symptoms, Acute Pelvic Pain (DC) Forms: [employer] (Turkmen) Print Language: BELARUSIAN - POA Present On Arrival: None - Clinical Impression Clinical Impression: Abdominal pain, , Nausea, Vomiting - Scribe Statement The provider has reviewed the documentation as recorded by the Scribe (Titus Murrell) Provider Attestation: All medical record entries made by the Scribe were at my direction and personally dictated by me. I have reviewed the chart and agree that the record accurately reflects my personal performance of the history, physical exam, medical decision making, and the department course for this patient. I have also personally directed, reviewed, and agree with the discharge instructions and disposition.
[2018-02-26] MEDS ORDERED: Sodium Chloride 0.9% 1,000 ML IV ONE (15:44)
[2018-02-26 16:20] LABS: BASO # 0.1 K/uL (0.0-0.2); BASO % 0.9 % (0.0-2.0); EOS # 0.1 K/uL (0.0-0.7); EOS % 0.5 % (0.0-4.0); HEMOGLOBIN 11.2 g/dL (11.0-16.0); LYMPH # 2.4 K/uL (1.0-4.3); LYMPH % 21.2 % (20.0-40.0); MEAN CELL VOLUME 81.7 fL (81.0-99.0); MEAN CORPUSCULAR HEMOGLOBIN 27.7 pg (27.0-31.0); MEAN PLATELET VOLUME 7.2 fL (7.2-11.7); MONO # 0.6 K/uL (0.0-0.8); MONO % 5.8 % (0.0-10.0); NEUT % 71.6 % (50.0-75.0); RBC 4.02 Mil/uL (3.80-5.20); RED CELL DISTRIBUTION WIDTH 13.6 % (11.5-14.5); WHITE BLOOD COUNT 11.2 K/uL (4.8-10.8)
[2018-02-26 16:36] LABS: ALB/GLOB RATIO 1.4 (1.0-2.1); ALBUMIN 4.2 g/dL (3.5-5.0); ALT/SGPT 28 U/L (9-52); AST/SGOT 19 U/L (14-36); BLOOD UREA NITROGEN 6 mg/dL (7-17); CALCIUM 9.2 mg/dl (8.6-10.4); GFR NON-AFRICAN AMERICAN > 60
[2018-02-26] MEDS ORDERED: Potassium Chloride 20 mEq ER Tab PO STA (16:46)
--- NOTE | 2018-02-26 16:55 | US ---
Date of service: 02/26/2018 PROCEDURE: OB Pelvic Ultrasound HISTORY: LLQ, left adnexal pain LMP: November 2017 COMPARISON: No relevant prior imaging FINDINGS: UTERUS: Gestational sac: Single intrauterine gestation.Measures 6.1 cm, out of range Yolk sac: Measures 0.5 cm. pole: [place]-rump length 4.5 cm compatible with estimated gestational age of 11 weeks, 2 days Heart rate: 148 bpm. age (Ultrasound estimated): 11 weeks, 2 days [place]-gestational hemorrhage: None. Date of delivery (Ultrasound estimated) : 09/15/2018 Uterus measures 11.3 x 9.2 x 9.1 cm. Normal in size and appearance. CERVIX: Measures 3.4 cm. Long and closed. No cervical abnormality seen. RIGHT OVARY: Measures 3.5 x 1.5 x 2.3 cm. No mass lesion. Normal flow. LEFT OVARY: Measures 2.9 x 1.9 x 3.2 cm. No solid mass. Normal flow. FREE FLUID: None. OTHER FINDINGS: None. IMPRESSION: Single live intrauterine gestation with average ultrasound age of 11 weeks, 2 days. heart rate 148 beats per minute. Cervix long and closed. Low lying placenta.
[2018-02-26] MEDS ORDERED: Potassium Chloride 20 mEq ER Tab PO ONE (16:58)
[2018-02-26 17:05] LABS: SQUAMOUS EPITHIAL 1 /hpf (0-5); URINE BILIRUBIN NEGATIVE (NEGATIVE); URINE BLOOD 2+ (NEGATIVE); URINE CLARITY Clear (Clear); URINE COLOR Yellow (YELLOW); URINE GLUCOSE (UA) NORMAL (Normal); URINE LEUKOCYTE ESTERASE NEG Leu/uL (Negative); URINE PROTEIN NEGATIVE (NEGATIVE); URINE UROBILINOGEN NORMAL mg/dL (0.2-1.0)
[2018-02-26 18:09] VITALS: BP 104/53; PULSE 103; RESP 16; TEMP 98.7; O2SAT 99
== END 2018-02-26 18:09 | disposition home or self-care (01) ==
LOC: C.ER 15:21
DX: O26.891 Other specified pregnancy related conditions, first trimester (principal); R10.32 Left lower quadrant pain; O21.9 Vomiting of pregnancy, unspecified; E87.6 Hypokalemia; Z3A.11 11 weeks gestation of pregnancy
CPT/HCPCS: 76801; 80053; 81001; 84702; 85025; 96361; 96374; 99284; J2405; J7030